=== PATIENT | female | born 1965 | race Caucasian/White ===

== ENCOUNTER 2017-01-15 19:29 | Emergency (ER) | payer MEDICARE, MEDICAID ==
--- NOTE | 2017-01-15 20:29 | RAD ---
INDICATION: Laceration COMPARISON: None TECHNIQUE: AP, lateral, and oblique views were obtained. FINDINGS: There are no acute bony findings. There is interphalangeal joint space narrowing compatible with mild osteoarthritis. There is a laceration about the distal aspect of the third digit. IMPRESSION: SOFT TISSUE LACERATION. NO FRACTURE OR FOREIGN BODY.
[2017-01-15] MEDS ORDERED: Morphine INJ* 4 MG/ML 1 ML CARPUJECT IM ONE (20:30)
--- NOTE | 2017-01-15 20:40 | ED ---
Upper Extremity Pain - HPI Summary HPI Summary: Pt here w/ injury to Rt middle finger while mowing lawn earlier today. Got hand cut while reaching under blade gaurd while mower was running - cut skin off of finger tip of RT middle finger - bleeding controlled with pressure. Takes 40mg methadone daily along with lyrica and oxycontin for chronic LBP. She reports she did not take these meds today and now has pain "all over". She is hysterical and not communicating specifics about her finger - son assists w/ details. 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 - son - Allergies/Home Medications Allergies/Adverse Reactions: Allergies Allergy/AdvReac Type Severity Reaction Status Date / Time No Known Allergies Allergy Verified 09/08/15 11:58 PMH/Surg Hx/FS Hx/Imm Hx Previously Healthy: Yes Endocrine/Hematology History: Denies: Hx Anticoagulant Therapy, Hx Blood Disorders, Hx Diabetes Cardiovascular History: Denies: Hx Hypertension, Hx Pacemaker/ICD Respiratory History: Reports: Hx Asthma History: Denies: Hx Renal Disease Musculoskeletal History: Reports: Hx Back Problems - takes lyrica, methadone and oxycontin Comment Only: Hx Rheumatoid Arthritis - HX ARTHRITIS Sensory History: Denies: Hx Hearing Aid Psychiatric History: Denies: Hx Panic Disorder - Surgical History Surgery Procedure, Year, and Place: 2005 LUMBAR - L3-4 - FUSION W/ CAGE. TUBAL . TUBAL LIGATION. HERNIA -Xs 2. Lt KNEE - ARTHROSCOPIC - Xs 2. SYNOVIAL CYST REMOVED - IN BACK. FX JAW - WIRED - ALL METAL REMOVED - Immunization History Immunizations Up to Date: Yes Infectious Disease History: No Infectious Disease History: Denies: Traveled Outside the [place] in Last 30 Days - Family History Known Family History: Positive: None - Social History Lives: With Family Alcohol Use: Occasionally Hx Substance Use: Yes Substance Use Type: Reports: Marijuana, Prescribed Hx Tobacco Use: Yes Smoking Status (MU): Current Every Day Smoker Review of Systems Musculoskeletal: Other - see HPI Skin: Other - see HPI Neurological: Other - no sx reported Positive: Anxious All Other Systems Reviewed And Are Negative: Yes Physical Exam Triage Information Reviewed: Yes Vital Signs On Initial Exam: Initial Vitals Temp Pulse Resp BP Pulse Ox 99.2 F 84 22 120/72 96 01/15/17 19:36 01/15/17 19:36 01/15/17 19:36 01/15/17 19:36 01/15/17 19:36 Vital Signs Reviewed: Yes Appearance: Positive: Well-Appearing, Well-Nourished, Pain Distress - crying, hysterical Skin: Positive: Warm - Rt middle finger w/ bleeding at distal tip along pad and what appears to be avulsion of skin Head/Face: Positive: Normal Head/Face Inspection Eyes: Positive: EOMI ENT: Positive: Hearing grossly normal Respiratory/Lung Sounds: Positive: Breath Sounds Present Cardiovascular: Positive: Pulses are Symmetrical in both Upper and Lower Extremities Musculoskeletal: Positive: Strength/ROM Intact, Pain @ - with flexion of middle and ring fingers Neurological: Positive: Normal, Sensory/Motor Intact, Alert, Oriented to Person Place, Time Psychiatric: Positive: Anxious - tearful - calm after pain medication and cleaning/dressing of wound Procedures - Laceration/Wound Repair 1 Location: upper extremity - Rt middle finger Description: Irregular - skin avulsion Length, Depth and Shape: entire pad of finger - 5mm diameter Betadine Prep?: No Irrigated w/ Saline (ccs): 250 Laceration/Wound Explored: clean Layer Closure?: No Sterile Dressing Applied?: Yes - surgicel, xeroform, gauze and coban Diagnostics - Vital Signs Vital Signs Temp Pulse Resp BP Pulse Ox 01/15/17 19:43 99.2 F 84 18 120/72 96 01/15/17 19:36 99.2 F 84 22 120/72 96 - Laboratory Lab Statement: Any lab studies that have been ordered have been reviewed, and results considered in the medical decision making process. Course/Dx - Course Course Of Treatment: No fx on XR - Diagnoses Provider Diagnoses: Avulsion of skin of middle finger Discharge - Discharge Plan Condition: Stable Disposition: HOME Patient Education Materials: Skin Avulsion (ED) Referrals: Dipika Fam RN [Primary Care Provider] - Additional Instructions: Keep dressing clean, dry and in place until seen by PCP in 1-2 days. Call tomorrow to schedule an appointment Rest, ice, elevate and take ibuprofen with food as needed for pain *If you develop redness, streaking, swelling, fever, chills, seek medical attention
[2017-01-15 21:19] VITALS: BP 108/66
== END 2017-01-15 21:17 | disposition home or self-care (01) ==
LOC: ED 19:29
DX: S61.202A Unspecified open wound of right middle finger without damage to nail, initial encounter (principal); W45.8XXA Other foreign body or object entering through skin, initial encounter; Y93.9 Activity, unspecified; Y92.9 Unspecified place or not applicable
CPT/HCPCS: 96372; 99282; J2270